=== PATIENT | female | born 1990 | race American Indian/Alaskan Native ===

== ENCOUNTER 2019-06-02 01:00 | Emergency (ER) | payer MEDICAID, OTHER ==
[2019-06-02] MEDS ORDERED: TYLENOL PO ONE (01:47)
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
[2019-06-02 04:10] VITALS: BP 127/75
== END 2019-06-02 03:51 | disposition home or self-care (01) ==
LOC: ED 01:00
DX: O9A.211 Injury, poisoning and certain other consequences of external causes complicating pregnancy, first trimester (principal); S39.012A Strain of muscle, fascia and tendon of lower back, initial encounter; O45.91 Premature separation of placenta, unspecified, first trimester; Z3A.09 9 weeks gestation of pregnancy; Z79.899 Other long term (current) drug therapy; V49.49XA Driver injured in collision with other motor vehicles in traffic accident, initial encounter; Y93.89 Activity, other specified; Y92.488 Other paved roadways as the place of occurrence of the external cause; Y99.8 Other external cause status
CPT/HCPCS: 36415; 76801; 84702; 99284

== ENCOUNTER 2019-10-31 03:45 | Emergency (ER) | payer MEDICAID ==
--- NOTE | 2019-10-31 07:45 | Emergency Department Report ---
ED General Adult HPI - General Chief complaint: Dyspnea/Respdistress Stated complaint: SOB,HBP,30 WEEKS PREG Time Seen by Provider: 10/31/19 06:58 Source: patient, RN notes reviewed Mode of arrival: Ambulatory Limitations: No Limitations - History of Present Illness Initial comments: This is a 29-year-old female. This patient is not known to this provider previously. The patient is 2, para 1. Last menstrual period 04/02/2019. 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 She is 2, para 1. The patient presents to the ER with a complaint of pain with shortness of breath. It started in the past couple hours. She states she feels like she simply cannot get enough air. She is not having physical pain. She denies leg pain, leg swelling, DVT, pulmonary embolism risk factors. There is a family h istory of lupus. She does not have lupus that she is aware of. She denies headache, neck pain, chest pain, abdominal pain, and urinary symptoms. She denies lower extremity swelling. She reports that during her previous , she did not have similar shortness of breath. She endorses a secondary complaint of high blood pressure. At her OBs office yesterday afternoon, she reports having had a blood pressure of 145/95. She does not have a history of high blood pressure that she is aware of. There is no change in urinary habits. No lower extremity edema. Her hypertension is now resolved. There is no complaint of headache. -: Gradual Consistency: other Worsens with: none Associated Symptoms: denies other symptoms, shortness of breath - Related Data Previous Rx's Medication Instructions Recorded Last Taken Type Amoxicillin [Trimox CAP] 500 mg PO Q8H #30 capsule 10/14/15 Unknown Rx Ondansetron [Zofran Odt] 4 mg SL Q6H PRN #8 tab.rapdis 10/14/15 Unknown Rx cephALEXin [Keflex] 500 mg PO Q6HR #20 capsule 10/31/19 Unknown Rx Allergies Allergy/AdvReac Type Severity Reaction Status Date / Time No Known Allergies Allergy Verified 01/08/15 13:18 ED Review of Systems ROS: Stated complaint: SOB,HBP,30 WEEKS PREG Other details as noted in HPI Constitutional: denies: fever ENT: denies: congestion Respiratory: shortness of breath Cardiovascular: denies: chest pain, edema, syncope Gastrointestinal: denies: abdominal pain Genitourinary: denies: dysuria Musculoskeletal: denies: back pain Skin: denies: lesions Neurological: denies: weakness Psychiatric: anxiety Hematological/Lymphatic: denies: easy bleeding ED Past Medical Hx - Past Medical History Previous Medical History?: No - Surgical History Past Surgical History?: No - Social History Smoking Status: Never Smoker Substance Use Type: None - Medications Home Medications: Home Medications Medication Instructions Recorded Confirmed Last Taken Type Amoxicillin [Trimox CAP] 500 mg PO Q8H #30 capsule 10/14/15 Unknown Rx Ondansetron [Zofran Odt] 4 mg SL Q6H PRN #8 tab.rapdis 10/14/15 Unknown Rx cephALEXin [Keflex] 500 mg PO Q6HR #20 capsule 10/31/19 Unknown Rx ED Physical Exam - General Limitations: No Limitations General appearance: alert, in no apparent distress - Head Head exam: Present: atraumatic, normocephalic - Eye Eye exam: Present: normal appearance, EOMI. Absent: nystagmus - ENT ENT exam: Present: normal exam, normal orophraynx, mucous membranes moist, normal external ear exam - Neck Neck exam: Present: normal inspection, full ROM. Absent: tenderness, meningismus - Respiratory Respiratory exam: Present: normal lung sounds bilaterally. Absent: respiratory distress - Cardiovascular Cardiovascular Exam: Present: normal rhythm, tachycardia, normal heart sounds. Absent: systolic murmur, diastolic murmur, rubs, gallop - GI/Abdominal GI/Abdominal exam: Present: soft, other (uterus is consistent with dates, without rebound, guarding or peritoneal signs.). Absent: distended, tenderness, guarding, rebound, rigid, pulsatile mass - Extremities Exam Extremities exam: Present: normal inspection, full ROM, other (2+ pulses noted in the bilateral upper and lower extremities. There is no palpable cord. negative Homans sign. Muscular compartments are soft. The pelvis is stable.). Absent: pedal edema, calf tenderness - Back Exam Back exam: Present: normal inspection, full ROM. Absent: tenderness, CVA tenderness (R), CVA tenderness (L), paraspinal tenderness, vertebral tenderness - Neurological Exam Neurological exam: Present: alert, oriented X3, normal gait, other (there is no facial droop. The tongue is midline. The extraocular movements are intact bilaterally. Speaking in full sentences. Minimal elevation of the base of the tongue. There is 5 out of 5 strength in the bilateral upper and lower extremities, and sensation is intact to light touch in the bilateral upper and lower extremities. Appropriate insight.). Absent: motor sensory deficit - Psychiatric Psychiatric exam: Present: anxious - Skin Skin exam: Present: warm, dry, intact, normal color. Absent: rash ED Course Vital Signs 10/31/19 10/31/19 10/31/19 03:57 06:32 06:44 Temperature 98.1 F Pulse Rate 109 H 110 H Respiratory 16 18 20 Rate Blood Pressure 118/76 Blood Pressure [Left] O2 Sat by Pulse 98 99 98 Oximetry 10/31/19 10/31/19 09:10 12:05 Temperature Pulse Rate 99 H 102 H Respiratory 16 16 Rate Blood Pressure Blood Pressure 113/72 108/50 [Left] O2 Sat by Pulse 99 99 Oximetry ED Medical Decision Making - Lab Data Result diagrams: 10/31/19 08:17 10/31/19 08:17 Vital Signs 10/31/19 10/31/19 10/31/19 03:57 06:32 06:44 Temperature 98.1 F Pulse Rate 109 H 110 H Respiratory 16 18 20 Rate Blood Pressure 118/76 Blood Pressure [Left] O2 Sat by Pulse 98 99 98 Oximetry 10/31/19 10/31/19 09:10 12:05 Temperature Pulse Rate 99 H 102 H Respiratory 16 16 Rate Blood Pressure Blood Pressure 113/72 108/50 [Left] O2 Sat by Pulse 99 99 Oximetry Lab Results 10/31/19 10/31/19 10/31/19 Range/Units 08:17 08:17 08:17 WBC 13.3 H (4.5-11.0) K/mm3 RBC 3.40 L (3.65-5.03) M/mm3 Hgb 10.6 (10.1-14.3) gm/dl Hct 31.0 (30.3-42.9) % MCV 91 (79-97) fl MCH 31 (28-32) pg MCHC 34 (30-34) % RDW 12.9 L (13.2-15.2) % Plt Count 283 (140-440) K/mm3 PT 13.1 (12.2-14.9) Sec. INR 0.98 (0.87-1.13) APTT 27.1 (24.2-36.6) Sec. D-Dimer 754.51 H (0-234) ng/mlDDU Sodium 136 L (137-145) mmol/L Potassium 4.3 (3.6-5.0) mmol/L Chloride 102.0 (98-107) mmol/L Carbon Dioxide 21 L (22-30) mmol/L Anion Gap 17 mmol/L BUN 4 L (7-17) mg/dL Creatinine 0.4 L (0.7-1.2) mg/dL Estimated GFR > 60 ml/min BUN/Creatinine Ratio 10 % Glucose 88 (65-100) mg/dL Calcium 8.9 (8.4-10.2) mg/dL Magnesium 2.00 (1.7-2.3) mg/dL Total Bilirubin 0.20 (0.1-1.2) mg/dL AST 22 (5-40) units/L ALT 18 (7-56) units/L Alkaline Phosphatase 80 (35-129) units/L Total Creatine Kinase 33 (30-135) units/L Total Protein 7.4 (6.3-8.2) g/dL Albumin 3.6 L (3.9-5) g/dL Albumin/Globulin Ratio 0.9 % TSH (0.270-4.200) mlU/mL Urine Color (Yellow) Urine Turbidity (Clear) Urine pH (5.0-7.0) Ur Specific [place] (1.003-1.030) Urine Protein (Negative) mg/dL Urine Glucose (UA) (Negative) mg/dL Urine Ketones (Negative) mg/dL Urine Blood (Negative) Urine Nitrite (Negative) Urine Bilirubin (Negative) Urine Urobilinogen (<2.0) mg/dL Ur Leukocyte Esterase (Negative) Urine WBC (Auto) (0.0-6.0) /HPF Urine RBC (Auto) (0.0-6.0) /HPF U Epithel Cells (Auto) (0-13.0) /HPF Urine Bacteria (Auto) (Negative) /HPF Urine Mucus /HPF 10/31/19 10/31/19 Range/Units 08:17 09:09 WBC (4.5-11.0) K/mm3 RBC (3.65-5.03) M/mm3 Hgb (10.1-14.3) gm/dl Hct (30.3-42.9) % MCV (79-97) fl MCH (28-32) pg MCHC (30-34) % RDW (13.2-15.2) % Plt Count (140-440) K/mm3 PT (12.2-14.9) Sec. INR (0.87-1.13) APTT (24.2-36.6) Sec. D-Dimer (0-234) ng/mlDDU Sodium (137-145) mmol/L Potassium (3.6-5.0) mmol/L Chloride (98-107) mmol/L Carbon Dioxide (22-30) mmol/L Anion Gap mmol/L BUN (7-17) mg/dL Creatinine (0.7-1.2) mg/dL Estimated GFR ml/min BUN/Creatinine Ratio % Glucose (65-100) mg/dL Calcium (8.4-10.2) mg/dL Magnesium (1.7-2.3) mg/dL Total Bilirubin (0.1-1.2) mg/dL AST (5-40) units/L ALT (7-56) units/L Alkaline Phosphatase (35-129) units/L Total Creatine Kinase (30-135) units/L Total Protein (6.3-8.2) g/dL Albumin (3.9-5) g/dL Albumin/Globulin Ratio % TSH 1.230 (0.270-4.200) mlU/mL Urine Color Yellow (Yellow) Urine Turbidity Clear (Clear) Urine pH 7.0 (5.0-7.0) Ur Specific [place] 1.009 (1.003-1.030) Urine Protein <15 mg/dl (Negative) mg/dL Urine Glucose (UA) Neg (Negative) mg/dL Urine Ketones Neg (Negative) mg/dL Urine Blood Neg (Negative) Urine Nitrite Neg (Negative) Urine Bilirubin Neg (Negative) Urine Urobilinogen < 2.0 (<2.0) mg/dL Ur Leukocyte Esterase Neg (Negative) Urine WBC (Auto) 1.0 (0.0-6.0) /HPF Urine RBC (Auto) 2.0 (0.0-6.0) /HPF U Epithel Cells (Auto) 1.0 (0-13.0) /HPF Urine Bacteria (Auto) 1+ (Negative) /HPF Urine Mucus Few /HPF - EKG Data -: EKG Interpreted by Me EKG shows normal: sinus rhythm Rate: tachycardia - EKG Data When compared to previous EKG there are: previous EKG unavailable 10/31/19 12:23 There is no prior EKG available for comparison. The EKG shows sinus tachycardia, there is a rightward axis, there is poor R wave progression, there is no endorsement of chest pain, the EKG is abnormal, the EKG is not consistent with ST elevation myocardial infarction. - Radiology Data Radiology results: report reviewed, image reviewed X-ray chest is negative for acute disease. CT scan chest is negative for acute disease. - Medical Decision Making Differential diagnosis, including but not limited to: Physiology of , pneumonia, pneumothorax, pulmonary embolism, anxiety Assessment and plan: 29-year-old female who endorses new onset shortness of breath. She is occasionally tachycardic, may be secondary to anxiety or underlying physiology of . She has no stigmata of lower extremity DVT. There is a possible family history of lupus, and EKG suggests a possible right axis deviation. I find the patient to be low risk by well's criteria, and low pretest probability for pulmonary embolism. However, a d-dimer was elevated, and after multiple extensive discussions, patient agreed to CT and examined the chest. Please note that the patient had a significant delay in disposition and acquisition of definitive testing as she was very indecisive/ambivalent about objective testing and risk stratification. Risks, benefits, and alternatives were discussed. Patient eventually agreed to definitive imaging, which fortunately showed no acute disease or pathology. Multiple conversations were witnessed by nurse Tim Giordano Patient observed in this department for greater than 8 hours without significant clinical decompensation. At this point in time, after pulmonary embolus, pneumothorax, significant pneumonia, large pericardial effusion, and other potentially emergent causes of shortness of breath have been excluded, I suspect that the likely etiology to her complaints is underlying physiology of . She's not been especially hypertensive here in the emergency room, no lower extremity edema is noted, normal liver function tests noted, urinalysis reviewed and appreciated, we do not suspect preeclampsia at this time. Patient states that she is going to follow up at her [facility] for further monitoring today. She does not want to go to our labor and delivery floor for monitoring. I specifically provided her the option, but she is declining, and indicates that she would like to go follow-up with her own [facility] doctor. Critical care attestation.: If time is entered above; I have spent that time in minutes in the direct care of this critically ill patient, excluding procedure time. ED Disposition Clinical Impression: , History of dyspnea Disposition: DC- TO HOME OR SELFCARE Is pt being admited?: No Does the pt Need Aspirin: No Condition: Stable Additional Instructions: Drink 4-6 cups of water per day for the next 5-7 days. Do not take metformin medication for the next 2 days of patient takes his medication. Follow up with her [facility] provider as soon as possible for outpatient monitoring. Urinalysis showed scant bacteria in the urine, therefore, take the Keflex antibiotic as directed. Return to the emergency room right away with projectile vomiting, change in mental status, confusion, inability to tolerate liquid feeds, no, worsening or different symptoms not present on the initial emergency room evaluation. Referrals: REGINE SOARES [Other] - 3-5 Days [facility] [Provider Group] - 3-5 Days [facility] [Provider Group] - 3-5 Days [facility] [Provider Group] - 3-5 Days
--- NOTE | 2019-10-31 08:09 | XRay Report ---
CHEST 2 VIEWS INDICATION: sob (consent signed). COMPARISON: None. FINDINGS: Support devices: None. Heart: Within normal limits. Pulmonary vasculature: Normal. Lungs/pleura: No acute air space or interstitial disease. No pneumothorax. Additional findings: None. IMPRESSION: 1. No acute findings. Signer Name: Efrain Almeida MD Signed: 10/31/2019 8:05 AM Workstation Name: [id number]
[2019-10-31 08:32] LABS: Hemoglobin 10.6 gm/dl (10.1-14.3); Mean Corpuscular HGB Conc 34 % (30-34); Mean Corpuscular Volume 91 fl (79-97); Platelet Count 283 K/mm3 (140-440); Red Cell Distribution Width 12.9 % (13.2-15.2)
[2019-10-31 08:47] LABS: Alanine Aminotransferase 18 units/L (7-56); Albumin 3.6 g/dL (3.9-5); BUN/Creatinine Ratio 10; Blood Urea Nitrogen 4 mg/dL (7-17); Calcium 8.9 mg/dL (8.4-10.2); Hemolysis Index 33
[2019-10-31 08:49] LABS: INR 0.98 (0.87-1.13)
[2019-10-31 08:50] LABS: Partial Thromboplastin Time 27.1 Sec. (24.2-36.6)
[2019-10-31 09:35] LABS: Bacteria,Urine 1+ /HPF (Negative); Bilirubin,Urine NEG (Negative); Blood,Urine NEG (Negative); Color,Urine Yellow (Yellow); Mucus,Urine FEW /HPF; Protein,Urine <15 mg/dL mg/dL (Negative); Urobilinogen,Urine < 2.0 mg/dL (<2.0)
[2019-10-31] MEDS ORDERED: SODIUM CHLORIDE 0.9% 1000 ML 1,000 ML IV ONE (10:52)
--- NOTE | 2019-10-31 12:01 | Cat Scan Report ---
CT angio chest INDICATION / CLINICAL INFORMATION: sob + d dimer . TECHNIQUE: Axial CT images were obtained after injection of IV contrast using CTA protocol. 3 plane MIP / 3D rec onstructions were produced. All CT scans at this location are performed using CT dose reduction for A ELISHA by means of automated exposure control. COMPARISON: None available. FINDINGS: No lung mass, infiltrate or pleural fluid. Dependent atelectasis is mild. Negative for mediastinal mass or adenopathy. Imaging of the upper abdomen is unremarkable. No aneurysm, dissection or pulmonary embolus. IMPRESSION: Negative for pulmonary embolus or pneumonia. Signer Name: Benny Roblero MD Signed: 10/31/2019 11:57 AM Workstation Name: [id number]
[2019-10-31 12:06] VITALS: BP 108/50
== END 2019-10-31 12:53 | disposition home or self-care (01) ==
LOC: ED 03:45
DX: O26.893 Other specified pregnancy related conditions, third trimester (principal); R06.02 Shortness of breath; O10.913 Unspecified pre-existing hypertension complicating pregnancy, third trimester; Z79.899 Other long term (current) drug therapy; Z3A.30 30 weeks gestation of pregnancy
CPT/HCPCS: 36415; 71046; 71275; 80053; 81001; 82550; 83735; 84443; 85027; 85379; 85610; 85730; 93005; 93010; 99285; J7030; Q9967